=== PATIENT | female | born 1935 | race Caucasian/White ===

== ENCOUNTER 2016-07-15 14:43 | Observation (INO) | payer OTHER ==
[2016-07-15] VITALS (7 sets, daily range): BP systolic 107–175; BP diastolic 55–88; PULSE 66–92; RESP 16–18; TEMP 99.7–102.3; O2SAT 90–97
[~2016-07-15] VITALS: Ht 162.6 cm; Wt 75.0 kg
[~2016-07-15 14:43] MED LIST: AMLO2.5T PO; ASPI81CH37 CHEW; CHOL100025 CHEW; MAGN400T2 PO; MECL-62 PO; METO25TA3 PO; SIMV40TA PO
--- NOTE | 2016-07-15 15:25 | PD ---
HPI Chief Complaint: Dizziness Time Seen by Provider: 15:06 Travel History International Travel<30 days: No Contact w/Intl Traveler<30days: No Traveled to known affect area: No History of Present Illness HPI 81yo F with PMH of vertigo, HTN, HLD presents to the ED with c/o sensation of spinning for 3 days. States when she opens her eyes, she feels like she is spinning. Had an episode of vomiting some phlegm on her way to the ED. Pt had this before and was here for vertigo in 2014. Pt ran out of meclizine. Pt also with cough for a few days and fever yesterday. Denies any chest pain, sob , abdominal pain, focal weakness or numbness. PFSH Past Medical History Hx Anticoagulant Therapy: No Arthritis: No Asthma: No Autoimmune Disease: No Anxiety: No Depression: No Heart Rhythm Problems: No Cancer: Yes (RIGHT MASTECTOMY) Cardiovascular Problems: Yes (HTN) High Cholesterol: Yes Chemotherapy: No Chest Pain: No Congestive Heart Failure: No COPD: No Cerebrovascular Accident: No Diabetes: No Diminished Hearing: No Endocrine: No Gastrointestinal Disorders: No GERD: No Genitourinary: No Hiatal Hernia: No Heparin Induced Thrombocytopen: No Hypertension: Yes Immune Disorder: No Implanted Vascular Access Dvce: No Kidney Stones: No Musculoskeletal: No Neurologic: No Psychiatric: No Reproductive: No Respiratory: No Immunizations Current: Yes Radiation Therapy: Yes (RIGHT CHEST) Renal Failure: No Sickle Cell Disease: No Sleep Apnea: No Thyroid Disease: No Ulcer: No ?: Not Past Surgical History Abdominal Surgery: No AICD: No Arteriovenous Shunt: No Cardiac Surgery: No Ear Surgery: No Endocrine Surgery: No Eye Surgery: No Genitourinary Surgery: No Gynecologic Surgery: No Insulin Pump: No Joint Replacement: No Neurologic Surgery: No Oral Surgery: No Thoracic Surgery: No Other Surgery: Yes (RIGHT PARTIAL MASTECTOMY W/ PARTIAL LYMPH NODE DISSECTION) Social History Alcohol Use: No Tobacco Use: No Substance Use: No Allergies-Medications (Allergen,Severity, Reaction): Coded Allergies: Vasotec (Verified Allergy, Severe, ANGOIEDEMA, 07/15/16) Reported Meds & Prescriptions Reported Meds & Active Scripts Active Reported Metoprolol Tartrate 25 Mg Tab 25 Mg PO DAILY Aspirin Low Dose (Aspirin) 81 Mg Chew 81 Mg CHEW DAILY Simvastatin 40 Mg Tab 40 Mg PO HS Amlodipine (Amlodipine Besylate) 2.5 Mg Tab 2.5 Mg PO DAILY Review of Systems Except as stated in HPI: all other systems reviewed are Neg Physical Exam Narrative GEN: 81yo F in mild distress. SKIN: Warm and dry. HEAD: Normocephalic, atraumatic. EYES: Pupils reactive and equal at 3mm bilaterally. NECK: Trachea midline, No JVD. ENT: Ears: TM wnl bilaterally. CV: S1, S2. Lungs: CTA B/L, equal breath sounds. ABD: soft, NT/ND. NEURO: No focal neurologic deficits. Normal speech. Muscle strength and sensation intact in all extremities. Data Data Last Documented VS Vital Signs Date Time Temp Pulse Resp B/P Pulse Ox O2 Delivery O2 Flow Rate FiO2 07/15/16 17:02 92 18 169/78 97 Room Air 07/15/16 14:53 99.7 Orders Electrocardiogram (07/15/16 ) Complete Blood Count With Diff (07/15/16 15:18) Basic Metabolic Panel (Bmp) (07/15/16 15:18) Chest, Single Ap (07/15/16 ) Meclizine (Antivert) (07/15/16 15:30) Urinalysis - C+S If Indicated (07/15/16 15:25) Sodium Chlorid 0.9% 500 Ml Inj (Ns 500 M (07/15/16 16:00) Prochlorperazine Inj (Compazine Inj) (07/15/16 17:00) Place In Observation (07/15/16 ) Vital Signs (Adult) Q4H (07/15/16 17:00) Activity Oob With Assistance (07/15/16 17:00) Diet Heart Healthy (07/15/16 Dinner) Sodium Chlor 0.9% 1000 Ml Inj (Ns 1000 M (07/15/16 17:00) Sodium Chloride 0.9% Flush (Ns Flush) (07/15/16 17:00) Admit Order (Ed Use Only) (07/15/16 17:00) Sodium Chloride 0.9% Flush (Ns Flush) (07/15/16 21:00) Acetaminophen (Tylenol) (07/15/16 17:00) Ondansetron Inj (Zofran Inj) (07/15/16 17:00) Magnesium Hydroxide Liq (Milk Of Magnesi (07/15/16 17:00) Basic Metabolic Panel (Bmp) (07/16/16 06:00) Comprehensive Metabolic Panel (07/16/16 06:00) Pt Request For Service (07/15/16 17:00) Scd Bilateral/Knee High HALINA.BID (07/15/16 17:00) Naloxone Inj (Narcan Inj) (07/15/16 17:00) Labs Laboratory Tests Test 07/15/16 07/15/16 15:18 15:48 White Blood Count 4.2 TH/MM3 Red Blood Count 5.21 MIL/MM3 Hemoglobin 15.5 GM/DL Hematocrit 47.1 % Mean Corpuscular Volume 90.5 FL Mean Corpuscular Hemoglobin 29.7 PG Mean Corpuscular Hemoglobin 32.8 % Concent Red Cell Distribution Width 12.7 % Platelet Count 128 TH/MM3 Mean Platelet Volume 8.1 FL Neutrophils (%) (Auto) 71.8 % Lymphocytes (%) (Auto) 11.9 % Monocytes (%) (Auto) 14.9 % Eosinophils (%) (Auto) 0.7 % Basophils (%) (Auto) 0.7 % Neutrophils # (Auto) 3.1 TH/MM3 Lymphocytes # (Auto) 0.5 TH/MM3 Monocytes # (Auto) 0.6 TH/MM3 Eosinophils # (Auto) 0.0 TH/MM3 Basophils # (Auto) 0.0 TH/MM3 CBC Comment DIFF FINAL Differential Comment Sodium Level 137 MEQ/L Potassium Level 3.9 MEQ/L Chloride Level 101 MEQ/L Carbon Dioxide Level 28.0 MEQ/L Anion Gap 8 MEQ/L Blood Urea Nitrogen 14 MG/DL Creatinine 0.96 MG/DL Estimat Glomerular Filtration 56 ML/MIN Rate Random Glucose 110 MG/DL Calcium Level 8.9 MG/DL Urine Collection Type CLEAN CATCH Urine Color YELLOW Urine Turbidity CLEAR Urine pH 6.0 Urine Specific [place] 1.021 Urine Protein TRACE mg/dL Urine Glucose (UA) NEG mg/dL Urine Ketones TRACE mg/dL Urine Occult Blood LARGE Urine Nitrite NEG Urine Bilirubin NEG Urine Leukocyte Esterase NEG Urine RBC 15-19 /hpf Urine WBC 0-2 /hpf Urine Squamous Epithelial 0-5 /hpf Cells Urine Yeast (Budding) FEW Microscopic Urinalysis Comment CULT NOT INDICATED Urine Collection Time 15:48 [facility] Medical Decision Making Medical Screen Exam Complete: Yes Emergency Medical Condition: Yes Interpretation(s) EKG: NSR 75bpm. LAD. No ST segment elevation or depression. Differential Diagnosis Peripheral vertigo vs. arrhythmia vs. electrolyte abnormality Narrative Course 81yo F presents with symptoms consistent with vertigo. Pt had work up in [address] brain and MRI brain. Pt given meclizine and NS IVF with little relieve. Pt still feels spinning and is unable to walk. She lives by herself and needs to be admitted since she is unable to ambulate due to dizziness. Will try some compazine. Labs reviewed, hemoconcentrated with elevated H/H. Pt given NS 500cc IVF. BMP unremarkable. UA showed blood but no leukocyte or nitrite. Discussed with Dr. Callaway and accepted to his service. Diagnosis Primary Impression: Vertigo Admitting Information Admitting Physician Requests: Debora Chase DO Jul 15, 2016 15:24
[2016-07-15] MEDS ORDERED: MECLIZINE HCL 25 MG TAB PO ONE (15:30)
[2016-07-15 15:37] LABS: AUTOMATED NEUTROPHIL # 3.1 TH/MM3 (1.8-7.7); BASOPHIL % 0.7 % (0.0-2.0); EOSINOPHIL % 0.7 % (0.0-4.0); HEMATOCRIT 47.1 % (35.0-46.0); HEMO FLAGS DIFF FINAL; LYMPH % 11.9 % (9.0-44.0); LYMPHOCYTE # 0.5 TH/MM3 (1.0-4.8); MEAN CELL VOLUME 90.5 FL (80.0-100.0); MEAN CORPUSCULAR HEMOGLOBIN 29.7 PG (27.0-34.0); MEAN CORPUSCULAR HGB CONC 32.8 % (32.0-36.0); MONO % 14.9 % (0.0-8.0); NEUT % 71.8 % (16.0-70.0); PLATELET COUNT 128 TH/MM3 (150-450); RED BLOOD COUNT 5.21 MIL/MM3 (4.00-5.30); RED CELL DISTRIBUTION WIDTH 12.7 % (11.6-17.2); WHITE BLOOD COUNT 4.2 TH/MM3 (4.0-11.0)
[2016-07-15 15:45] LABS: POTASSIUM 3.9 MEQ/L (3.5-5.1)
[2016-07-15 15:55] LABS: BLOOD, URINE LARGE (NEG); GLUCOSE,URINE NEG (NEG); KETONE, URINE TRACE mg/dL (NEG); NITRITE,URINE NEG (NEG)
--- NOTE | 2016-07-15 15:59 | RADHPO ---
EXAM DATE/TIME: 07/15/2016 15:18 [place] COMPARISON: CHEST SINGLE AP, May 05, 2014, 9:39. INDICATIONS : Cough. MEDICAL HISTORY : None. SURGICAL HISTORY : None. ENCOUNTER: Initial ACUITY: 3 days PAIN SCORE: 0/10 LOCATION: Bilateral chest FINDINGS: A single view of the chest demonstrates the lungs to be symmetrically aerated with minimal atelectati c changes of the left hemidiaphragm. There appears to be interval development of benign parenchymal c alcifications either in the parenchyma of the right lung base or the overlying breast tissue. Breast shadows are asymmetric suggesting a partial right mastectomy with axillary pearl dissection. Heart si ze is normal. Degenerative spurring of the dorsal spine. Osseous structures are otherwise intact. CONCLUSION: 1. No acute infiltrate. 2. Minimal atelectatic changes of the left hemidiaphragm with benign appearing calcification projecti ng over the right hemidiaphragm. This may be within the overlying breast tissue or right lung base. 3. Stable postsurgical changes with probable right axillary pearl dissection and partial right mastec zuleika. Patient has asymmetric breast shadows. Jax Amezcua MD on July 15, 2016 at 15:54 Board Certified Radiologist. This report was verified electronically.
[2016-07-15] MEDS ORDERED: SODIUM CHLORID 0.9% 500 ML INJ 500 ML IV ONE (16:00)
[2016-07-15 16:02] LABS: METHOD OF COLLECTION CLEAN CATCH; URINE COLOR YELLOW (YELLW/STRAW); WBC, URINE 0-2 /hpf (0-5)
[2016-07-15 16:03] LABS: COMMENT (UR) CULT NOT INDICATED; CULTURE IF INDICATED CULT NOT INDICATED; RBC, URINE 15-19 /hpf (0-3); SQUAMOUS EPITHELIAL CELL URINE 0-5 /hpf (0-5)
[2016-07-15] MEDS ORDERED: ONDANSETRON HCL 4 MG/2 ML VIAL IVP PRN (17:00)
[2016-07-15] MEDS ORDERED: SODIUM CHLORIDE 0.9% FLUSH 10 ML FLUSH IV FLUSH PRN (17:00)
[2016-07-15] MEDS ORDERED: MAGNESIUM HYDROXIDE SUSP 30 ML CUP PO PRN (17:00)
[2016-07-15] MEDS ORDERED: NALOXONE HCL 0.4 MG/ML AMP IV PRN (17:00)
[2016-07-15] MEDS ORDERED: PROCHLORPERAZINE INJ 10 MG/2 ML VIAL IV PUSH ONE (17:00)
[2016-07-15] MEDS ORDERED: ACETAMINOPHEN 325 MG TAB PO PRN (17:00)
--- NOTE | 2016-07-15 17:03 | HHI.HP ---
[facility] Armando Anthony MD Admission Diagnosis Vertigo, unable to ambulate Diagnoses: Chief Complaint: Vertigo. Travel History International Travel<30 Days: No Contact w/Intl Traveler <30 Da: No Traveled to Known Affected Are: No History of Present Illness Ms. Zamora is a pleasant 81 year old female with a remote history of vertigo, hypertension, hyperlipidemia who presented to the ED on 07/15/2016 due to spinning sensation that started about three days ago. Patient has not taken Meclizine for about 3 years. She lives by herself and lives an independent life. In the last three days, she reports spinning sensation when she opens her eyes. She reports no cough, fever, chills, chest pain or shortness of breath. Denies any changes in bowel or bladder habits. Review of Systems Except as stated in HPI: all other systems reviewed are Neg Past Family Social History Past Medical History Right breast lump HTN, HLD, Vertigo. Past Surgical History Right sided lumpectomy in 1993. Reported Medications Metoprolol Tartrate 25 Mg Tab 25 Mg PO DAILY Aspirin Low Dose (Aspirin) 81 Mg Chew 81 Mg CHEW DAILY Simvastatin 40 Mg Tab 40 Mg PO HS Amlodipine (Amlodipine Besylate) 2.5 Mg Tab 2.5 Mg PO DAILY Allergies: Coded Allergies: Vasotec (Verified Allergy, Severe, ANGOIEDEMA, 07/15/16) Family History No family history of Alzheimer's or Parkinson's. Social History Denies using tobacco, alcohol. Physical Exam Vital Signs Vital Signs Date Time Temp Pulse Resp B/P Pulse Ox O2 Delivery O2 Flow Rate FiO2 07/15/16 16:01 77 18 175/80 97 Room Air 07/15/16 15:10 76 96 Room Air 07/15/16 14:53 99.7 80 16 151/88 94 Physical Exam GENERAL: This is a well-nourished, well-developed patient, in no apparent distress. Eyes closed during this interview. SKIN: No rashes, ecchymoses or lesions. Warm and dry. HEAD: Atraumatic. Normocephalic. No temporal or scalp tenderness. EYES: Pupils equal round and reactive. No injection or drainage. ENT: Nose without bleeding, purulent drainage or septal hematoma. Airway patent. NECK: Trachea midline. No lymphadenopathy. Supple, nontender, no meningeal signs. CARDIOVASCULAR: Regular rate and rhythm without murmurs, gallops, or rubs. No JVD. RESPIRATORY: Clear to auscultation. Breath sounds equal bilaterally. No wheezes , rales, or rhonchi. GASTROINTESTINAL: Abdomen soft, non-tender, nondistended. No guarding. MUSCULOSKELETAL: Extremities without clubbing, cyanosis, or edema. NEUROLOGICAL: Awake and alert. Cranial nerves II through XII intact. No focal neurological deficits. Normal speech. Laboratory Laboratory Tests Test 07/15/16 07/15/16 15:18 15:48 White Blood Count 4.2 Red Blood Count 5.21 Hemoglobin 15.5 Hematocrit 47.1 Mean Corpuscular Volume 90.5 Mean Corpuscular Hemoglobin 29.7 Mean Corpuscular Hemoglobin 32.8 Concent Red Cell Distribution Width 12.7 Platelet Count 128 Mean Platelet Volume 8.1 Neutrophils (%) (Auto) 71.8 Lymphocytes (%) (Auto) 11.9 Monocytes (%) (Auto) 14.9 Eosinophils (%) (Auto) 0.7 Basophils (%) (Auto) 0.7 Neutrophils # (Auto) 3.1 Lymphocytes # (Auto) 0.5 Monocytes # (Auto) 0.6 Eosinophils # (Auto) 0.0 Basophils # (Auto) 0.0 CBC Comment DIFF FINAL Differential Comment Sodium Level 137 Potassium Level 3.9 Chloride Level 101 Carbon Dioxide Level 28.0 Anion Gap 8 Blood Urea Nitrogen 14 Creatinine 0.96 Estimat Glomerular Filtration 56 Rate Random Glucose 110 Calcium Level 8.9 Urine Collection Type CLEAN CATCH Urine Color YELLOW Urine Turbidity CLEAR Urine pH 6.0 Urine Specific [place] 1.021 Urine Protein TRACE Urine Glucose (UA) NEG Urine Ketones TRACE Urine Occult Blood LARGE Urine Nitrite NEG Urine Bilirubin NEG Urine Leukocyte Esterase NEG Urine RBC 15-19 Urine WBC 0-2 Urine Squamous Epithelial 0-5 Cells Urine Yeast (Budding) FEW Microscopic Urinalysis Comment CULT NOT INDICATED Urine Collection Time 15:48 Result Diagram: 07/15/16 1518 07/15/16 1518 Imaging Last Impressions Chest X-Ray 07/15/16 0000 Signed Impressions: Service Date/Time: Friday, July 15, 2016 15:18 - CONCLUSION: 1. No acute infiltrate. 2. Minimal atelectatic changes of the left hemidiaphragm with benign appearing calcification projecting over the right hemidiaphragm. This may be within the overlying breast tissue or right lung base. 3. Stable postsurgical changes with probable right axillary pearl dissection and partial right mastectomy. Patient has asymmetric breast shadows. Jax Amezcua MD Assessment and Plan Problem List: (1) Vertigo ICD Code: R42 Status: Acute (2) HTN (hypertension) ICD Code: I10 Status: Acute Assessment and Plan Ms. Zamora is an 81 year old female with a remote history of Vertigo who presents to the ED with vertigo symptoms that started 3 days ago. Patient did not have any fever, chills, cough, shortness of breath. Upon admission, however, in the evening, patient developed fever. Discussed with RN on 2016 evening. Patient's fever was around 100.9. 102.3F was recorded once. However, an immediate repeat temp check was 100.9F. - Vertigo - Will start patient on Meclizine 25mg TID. - PT eval. - Low grade fever - etiology not clear. - CXR reviewed by me, does not show any evidence of infiltrates. Blood cx pending. UA unremarkable. - Bacterial Labyrinthitis is a possibility or pneumonia - Will empirically start patient on Levaquin IV. If patient continues to have persistent fever, will consider Ceftriaxone. - Hypertension - Continue Amlodipine. Patient takes 2.5mg Qday. Will continue 5mg Qday. - Hyperlipidemia - continue Statin. Full code. EUNs. Desiree Callaway DO Jul 15, 2016 17:02
[2016-07-15] MEDS: SODIUM CHLOR 0.9% 1000 ML INJ 1,000 ML IV SCH (17:09)
[2016-07-15] MEDS ORDERED: amLODIPine BESYLATE 5 MG TAB PO ONE (17:45)
[2016-07-15] MEDS ORDERED: PRAVASTATIN SOD 80 MG TAB PO SCH (21:00)
[2016-07-15] MEDS: SODIUM CHLORIDE 0.9% FLUSH 10 ML FLUSH IV FLUSH SCH (22:10)
[2016-07-15] MEDS: MECLIZINE HCL 25 MG TAB PO SCH (22:10)
[2016-07-15] MEDS ORDERED: LEVOFLOXACIN 750 MG PREMIX INJ 150 ML IV ONE (22:15)
[2016-07-16 00:52] VITALS: BP 103/57; PULSE 68; RESP 18; TEMP 99.7; O2SAT 91
[2016-07-16] MEDS: SODIUM CHLOR 0.9% 1000 ML INJ 1,000 ML IV SCH ×2 (05:05→13:30)
[2016-07-16 05:06] VITALS: O2SAT 96
[2016-07-16] MEDS: MECLIZINE HCL 25 MG TAB PO SCH ×2 (05:12→13:30)
[2016-07-16 07:34] LABS: CHLORIDE 105 MEQ/L (98-107); POTASSIUM 3.9 MEQ/L (3.5-5.1); SODIUM (NA) 139 MEQ/L (136-145)
[2016-07-16 07:50] LABS: ALKALINE PHOSPHATASE 51 U/L (45-117); ALT (GPT) 34 U/L (10-53); ANION GAP 6 MEQ/L (5-15); AST (GOT) 37 U/L (15-37); BICARBONATE 27.6 MEQ/L (21.0-32.0); BLOOD UREA NITROGEN 11 MG/DL (7-18); GLOMERULAR FILTRATION RATE 62 ML/MIN (>89); TOTAL BILIRUBIN ADULT 0.4 MG/DL (0.2-1.0)
[2016-07-16 08:00] VITALS: BP 127/71; PULSE 63; RESP 24; TEMP 98.9; O2SAT 92
[2016-07-16] MEDS: SODIUM CHLORIDE 0.9% FLUSH 10 ML FLUSH IV FLUSH SCH (08:48)
[2016-07-16] MEDS ORDERED: amLODIPine BESYLATE 5 MG TAB PO SCH (09:00)
[2016-07-16] MEDS ORDERED: ASPIRIN 81 MG CHEW TAB CHEW SCH (09:00)
[2016-07-16 12:00] VITALS: BP 116/66; PULSE 66; RESP 24; TEMP 98.8; O2SAT 98
--- NOTE | 2016-07-16 13:47 | EKG ---
Date Performed: 07/15/2016 Time Performed: 15:26:00 PTAGE: 81 years EKG: Sinus rhythm Leftward axis Inferior infarct - age undetermined Loss of R waves, V3, V4, and V5 compared to previo us tracing. Cannot rule out any current injury. Clinical correlation is recommended Abnormal ECG PREVIOUS TRACING : 05/05/2014 08.54 DOCTOR: Keegan Pena Interpretating Date/Time 07/16/2016 13:44:36
[2016-07-16 16:00] VITALS: BP 137/69; PULSE 68; RESP 24; TEMP 98.2; O2SAT 94
[2016-07-16] MEDS ORDERED: LEVA750T PO (16:12)
[2016-07-16] MEDS ORDERED: MECL-62 PO (16:12)
--- NOTE | 2016-07-16 16:16 | HHI.PR ---
Subjective Remarks Follow-up for dizziness. Patient is feeling much better today. Denies any spinning sensation. Reports to go home. Objective Vitals Vital Signs Date Time Temp Pulse Resp B/P Pulse Ox O2 Delivery O2 Flow Rate FiO2 07/16/16 12:00 98.8 66 24 116/66 98 07/16/16 08:00 98.9 63 24 127/71 92 07/16/16 05:06 96 07/16/16 00:52 99.7 68 18 103/57 91 07/15/16 21:37 102.3 72 16 118/61 90 07/15/16 20:22 100.9 66 18 143/71 92 07/15/16 18:49 60 18 107/55 98 07/15/16 17:50 82 18 162/78 95 Room Air 07/15/16 17:02 92 18 169/78 97 Room Air I/O 07/15/16 07/15/16 07/15/16 07/16/16 07/16/16 07/16/16 07:00 15:00 23:00 07:00 15:00 23:00 Intake Total 500 ml 1200 ml 660 ml Output Total 4 ml Balance 500 ml 1200 ml 656 ml Intake Oral 660 ml IV Total 500 ml 1200 ml Output Urine Total 4 ml # Voids 1 Result Diagram: 07/15/16 1518 07/16/16 0712 Imaging Last Impressions Chest X-Ray 07/15/16 0000 Signed Impressions: Service Date/Time: Friday, July 15, 2016 15:18 - CONCLUSION: 1. No acute infiltrate. 2. Minimal atelectatic changes of the left hemidiaphragm with benign appearing calcification projecting over the right hemidiaphragm. This may be within the overlying breast tissue or right lung base. 3. Stable postsurgical changes with probable right axillary pearl dissection and partial right mastectomy. Patient has asymmetric breast shadows. Jax Amezcua MD Objective Remarks GENERAL: AOX3, NAD. SKIN: Warm and dry. HEAD: Normocephalic. EYES: No scleral icterus. No injection or drainage. NECK: Supple, trachea midline. No JVD or lymphadenopathy. CARDIOVASCULAR: Regular rate and rhythm without murmurs, gallops, or rubs. RESPIRATORY: Breath sounds equal bilaterally. No accessory muscle use. GASTROINTESTINAL: Abdomen soft, non-tender, nondistended. MUSCULOSKELETAL: No cyanosis, or edema. BACK: Nontender without obvious deformity. No CVA tenderness. Procedures None. A/P Problem List: (1) Vertigo ICD Code: R42 Status: Acute (2) HTN (hypertension) ICD Code: I10 Status: Acute Assessment and Plan Ms. Zamora is an 81 year old female with a remote history of Vertigo who presents to the ED with vertigo symptoms that started 3 days ago. Patient did not have any fever, chills, cough, shortness of breath. Upon admission, however, in the evening, patient developed fever. Discussed with RN on 2016 evening. Patient's fever was around 100.9. 102.3F was recorded once. However, an immediate repeat temp check was 100.9F. - Vertigo - Continue Meclizine 25mg TID. - Low grade fever - etiology not clear. - CXR reviewed by me, does not show any evidence of infiltrates. Blood cx pending. UA unremarkable. - Bacterial Labyrinthitis is a possibility or pneumonia - Continue Levaquin for 7 more days. - Hypertension - Continue Amlodipine 2.5mg Qday. Discontinue Metoprolol - patient's heart rate has been in the 60s. - Hyperlipidemia - continue Statin. Full code. SCDs. Discharge patient to home Condition on discharge: Improved Heart healthy Diet as tolerated Ad Carlita activity Rx written: - Meclizine 25 mg by mouth 3 times a day - Levaquin 750 mg by mouth daily for 7 days. Follow-up with primary care physician within one week and ENT within 2 weeks. Desiree Callaway DO Jul 16, 2016 4:16 pm
[2016-07-17] MEDS ORDERED: LEVOFLOXACIN 750 MG/DEXTROSE 150 ML IV SCH (22:00)
== END 2016-07-16 17:35 | disposition home or self-care (01) ==
LOC: PHED 14:43 → PHEDA 17:02 → PH3A 18:47
PROVIDERS: ADMIT Hospitalist; ATTEND Hospitalist
DX: R42 Dizziness and giddiness (principal); I10 Essential (primary) hypertension; R50.9 Fever, unspecified; E78.5 Hyperlipidemia, unspecified; E78.00 Pure hypercholesterolemia, unspecified; R94.31 Abnormal electrocardiogram [ECG] [EKG]
CPT/HCPCS: 71010; 80048; 80053; 81001; 85025; 87040; 93005; 94150; 96360; 97161; 99285; G0378; G8987; G8988; J0780; J1956; J7030; J7040

== ENCOUNTER 2017-05-10 12:24 | Emergency (ER) | payer OTHER ==
[~2017-05-10] VITALS: Ht 162.6 cm; Wt 76.5 kg
[~2017-05-10 12:24] MED LIST changes: -ASPI81CH37 CHEW; +ASPI81CH6 CHEW; -CHOL100025 CHEW; +LEVA750T PO; -MAGN400T2 PO; -METO25TA3 PO
[2017-05-10 12:33] VITALS: BP 205/92; PULSE 73; RESP 16; TEMP 97.7; O2SAT 99
[2017-05-10] MEDS ORDERED: SODIUM CHLORIDE 0.9% FLUSH 10 ML FLUSH IVF PRN (12:45)
[2017-05-10] MEDS ORDERED: HTN MED (12:49)
[2017-05-10] MEDS ORDERED: LOVA10TA PO (12:49)
[2017-05-10 12:53] VITALS: BP 194/97; PULSE 70; RESP 18; O2SAT 99
--- NOTE | 2017-05-10 12:55 | PD ---
HPI Chief Complaint: Hypertension Time Seen by Provider: 12:36 Travel History International Travel<30 days: No Contact w/Intl Traveler<30days: No Traveled to known affect area: No History of Present Illness HPI This is an 81-year-old female with a history of hypertension who presents for elevated blood pressure. She states that over the last week, her blood pressure has been higher than usual. At home, it has been between 170-190 systolic. She denies associated chest pain, shortness of breath, headache, unilateral weakness, numbness, tingling. She has been otherwise well recently without fever, chills, cough, congestion, vomiting, diarrhea. She states that her diet consists mostly of hotdogs, frozen food, soups. She states that yesterday, she had some swelling in her ankles that is improved today. She states that she has been compliant with her medications. She usually takes 2.5 mg of amlodipine and had doubled it. She called her primary physician's office this morning and was told she can triple it. Symptoms are mild in severity. Onset gradual. No known alleviating or aggravating factors. PFSH Past Medical History Hx Anticoagulant Therapy: No Arthritis: No Asthma: No Autoimmune Disease: No Anxiety: No Depression: No Heart Rhythm Problems: No Cancer: Yes (RIGHT MASTECTOMY) Cardiovascular Problems: Yes (htn on meds) High Cholesterol: Yes Chemotherapy: No Chest Pain: No Congestive Heart Failure: No COPD: No Cerebrovascular Accident: No Diabetes: No Diminished Hearing: No Endocrine: No Gastrointestinal Disorders: No GERD: No Genitourinary: No Hiatal Hernia: No Heparin Induced Thrombocytopen: No Hypertension: Yes Immune Disorder: No Implanted Vascular Access Dvce: No Kidney Stones: No Musculoskeletal: No Neurologic: No Psychiatric: No Reproductive: No Respiratory: No Immunizations Current: Yes Migraines: No Radiation Therapy: Yes (RIGHT CHEST) Renal Failure: No Seizures: No Sickle Cell Disease: No Sleep Apnea: No Thyroid Disease: No Ulcer: No ?: Not Menopausal: Yes Past Surgical History Abdominal Surgery: No AICD: No Arteriovenous Shunt: No Cardiac Surgery: No Ear Surgery: No Endocrine Surgery: No Eye Surgery: No Genitourinary Surgery: No Gynecologic Surgery: No Insulin Pump: No Joint Replacement: No Neurologic Surgery: No Oral Surgery: No Thoracic Surgery: No Other Surgery: Yes (RIGHT PARTIAL MASTECTOMY W/ PARTIAL LYMPH NODE DISSECTION) Social History Alcohol Use: No Tobacco Use: No Substance Use: No Allergies-Medications (Allergen,Severity, Reaction): Coded Allergies: enalaprilat (Unverified Allergy, Severe, ANGOIEDEMA, 05/10/17) Reported Meds & Prescriptions Reported Meds & Active Scripts Active Reported Atorvastatin (Atorvastatin Calcium) 20 Mg Tab 20 Mg PO HS Amlodipine (Amlodipine Besylate) 2.5 Mg Tab 2.5 Mg PO DAILY Review of Systems Except as stated in HPI: all other systems reviewed are Neg Physical Exam Narrative GENERAL: Alert, well nourished, well appearing patient resting on the bed in no acute distress. Vital Signs reviewed SKIN: Focused skin assessment warm/dry. HEAD: Atraumatic. Normocephalic. EYES: Pupils equal and round. No scleral icterus. No injection or drainage. ENT: No nasal bleeding or discharge. Mucous membranes pink and moist. NECK: Trachea midline. No JVD. Spontaneous, painless full range of motion with no meningismus CARDIOVASCULAR: Regular rate and rhythm. No murmur appreciated. Extremities warm and well perfused with bounding peripheral pulses RESPIRATORY: No accessory muscle use. Clear to auscultation. Breath sounds equal bilaterally. Breathing easily and speaking in full sentences GASTROINTESTINAL: Abdomen soft, non-tender, nondistended. Normal bowel sounds. No rigid, rebound, guarding MUSCULOSKELETAL: No obvious deformities. No clubbing. No cyanosis. No edema. Compartments are soft NEUROLOGICAL: Awake and alert. No obvious cranial nerve deficits. Motor grossly within normal limits. Normal speech. Sensation intact. Normal gait. No pronator drift. Data Data Last Documented VS Vital Signs Date Time Temp Pulse Resp B/P (MAP) Pulse Ox O2 Delivery O2 Flow Rate FiO2 05/10/17 14:45 16 145/75 (98) 97 Room Air 05/10/17 12:53 70 05/10/17 12:33 97.7 Orders Orders Electrocardiogram (05/10/17 12:45) Complete Blood Count With Diff (05/10/17 12:45) Comprehensive Metabolic Panel (05/10/17 12:45) Magnesium (Mg) (05/10/17 12:45) B-Type Natriuretic Peptide (05/10/17 12:45) Ckmb (Isoenzyme) Profile (05/10/17 12:45) Troponin I (05/10/17 12:45) Act Partial Throm Time (Ptt) (05/10/17 12:45) Prothrombin Time / Inr (Pt) (05/10/17 12:45) Chest, Pa & Lat (05/10/17 12:45) Ct Brain W/O Iv Contrast(Rout) (05/10/17 12:45) Ecg Monitoring (05/10/17 12:45) Iv Access Insert/Monitor (05/10/17 12:45) Oximetry (05/10/17 12:45) Sodium Chloride 0.9% Flush (Ns Flush) (05/10/17 12:45) Potassium Chloride (Kcl) (05/10/17 14:00) Hydralazine Inj (Apresoline Inj) (05/10/17 14:00) Labs Laboratory Tests Test 05/10/17 13:00 White Blood Count 5.5 TH/MM3 Red Blood Count 4.54 MIL/MM3 Hemoglobin 13.4 GM/DL Hematocrit 40.3 % Mean Corpuscular Volume 88.7 FL Mean Corpuscular Hemoglobin 29.5 PG Mean Corpuscular Hemoglobin Concent 33.3 % Red Cell Distribution Width 12.5 % Platelet Count 187 TH/MM3 Mean Platelet Volume 8.2 FL Neutrophils (%) (Auto) 56.6 % Lymphocytes (%) (Auto) 28.9 % Monocytes (%) (Auto) 9.3 % Eosinophils (%) (Auto) 3.9 % Basophils (%) (Auto) 1.3 % Neutrophils # (Auto) 3.1 TH/MM3 Lymphocytes # (Auto) 1.6 TH/MM3 Monocytes # (Auto) 0.5 TH/MM3 Eosinophils # (Auto) 0.2 TH/MM3 Basophils # (Auto) 0.1 TH/MM3 CBC Comment DIFF FINAL Differential Comment Prothrombin Time 11.0 SEC Prothromb Time International Ratio 1.1 RATIO Activated Partial Thromboplast Time 25.9 SEC Blood Urea Nitrogen 10 MG/DL Creatinine 0.64 MG/DL Random Glucose 97 MG/DL Total Protein 7.9 GM/DL Albumin 3.6 GM/DL Calcium Level 8.8 MG/DL Magnesium Level 2.2 MG/DL Alkaline Phosphatase 84 U/L Aspartate Amino Transf (AST/SGOT) 20 U/L Alanine Aminotransferase (ALT/SGPT) 24 U/L Total Bilirubin 0.4 MG/DL Sodium Level 137 MEQ/L Potassium Level 3.4 MEQ/L Chloride Level 103 MEQ/L Carbon Dioxide Level 26.8 MEQ/L Anion Gap 7 MEQ/L Estimat Glomerular Filtration Rate 89 ML/MIN Total Creatine Kinase 60 U/L Troponin I LESS THAN 0.02 NG/ML B-Type Natriuretic Peptide 34 PG/ML MDM Medical Decision Making Medical Screen Exam Complete: Yes Emergency Medical Condition: Yes Medical Record Reviewed: Yes Interpretation(s) EKG shows sinus rhythm with a rate of 64. No acute ST elevation Last [address] 05/10/171244 Signed Impressions: Service Date/Time: Wednesday, May 10, 2017 13:33 - CONCLUSION: Negative for an acute process Petey Ruvalcaba MD FACR Chest X-Ray 05/10/171244 Signed Impressions: Service Date/Time: Wednesday, May 10, 2017 13:23 - CONCLUSION: 1. No acute cardiopulmonary disease. Yusuf Zafar MD Laboratory Tests Test 05/10/17 13:00 White Blood Count 5.5 TH/MM3 Red Blood Count 4.54 MIL/MM3 Hemoglobin 13.4 GM/DL Hematocrit 40.3 % Mean Corpuscular Volume 88.7 FL Mean Corpuscular Hemoglobin 29.5 PG Mean Corpuscular Hemoglobin Concent 33.3 % Red Cell Distribution Width 12.5 % Platelet Count 187 TH/MM3 Mean Platelet Volume 8.2 FL Neutrophils (%) (Auto) 56.6 % Lymphocytes (%) (Auto) 28.9 % Monocytes (%) (Auto) 9.3 % Eosinophils (%) (Auto) 3.9 % Basophils (%) (Auto) 1.3 % Neutrophils # (Auto) 3.1 TH/MM3 Lymphocytes # (Auto) 1.6 TH/MM3 Monocytes # (Auto) 0.5 TH/MM3 Eosinophils # (Auto) 0.2 TH/MM3 Basophils # (Auto) 0.1 TH/MM3 CBC Comment DIFF FINAL Differential Comment Prothrombin Time 11.0 SEC Prothromb Time International Ratio 1.1 RATIO Activated Partial Thromboplast Time 25.9 SEC Blood Urea Nitrogen 10 MG/DL Creatinine 0.64 MG/DL Random Glucose 97 MG/DL Total Protein 7.9 GM/DL Albumin 3.6 GM/DL Calcium Level 8.8 MG/DL Magnesium Level 2.2 MG/DL Alkaline Phosphatase 84 U/L Aspartate Amino Transf (AST/SGOT) 20 U/L Alanine Aminotransferase (ALT/SGPT) 24 U/L Total Bilirubin 0.4 MG/DL Sodium Level 137 MEQ/L Potassium Level 3.4 MEQ/L Chloride Level 103 MEQ/L Carbon Dioxide Level 26.8 MEQ/L Anion Gap 7 MEQ/L Estimat Glomerular Filtration Rate 89 ML/MIN Total Creatine Kinase 60 U/L Troponin I LESS THAN 0.02 NG/ML B-Type Natriuretic Peptide 34 PG/ML Differential Diagnosis Accelerated hypertension, end organ dysfunction, fluid overload Narrative Course Patient was placed on the cardiac exercise physiologist. IV access was established. EKG, labs, imaging were performed. She was given potassium supplementation and a dose of hydralazine with improvement in her blood pressure. I reviewed the results of the workup with her. Plan for discharge with supportive care and very close outpatient follow-up with her primary physician within the next 2 days. She will increase her amlodipine as discussed with her primary this morning. Patient understands the importance of close outpatient follow-up. She understands she may require further testing and treatment as an outpatient. She understands strict return indications. She is comfortable with this plan and eager to go home. Diagnosis Primary Impression: Accelerated hypertension Referrals: Primary Care Physician 1 day Patient Instructions: Chronic Hypertension (DC), General Instructions Additional Instructions: Continue current home medications. Avoid salt: No frozen food, avoid soups, no hot dogs. Follow-up with primary physician within the next 2 days. Call today to make an appointment. Med/Other Pt SpecificInfo: No Change to Meds Disposition: 01 DISCHARGE HOME Condition: Stable Shannan Fallon MD May 10, 2017 12:55
[2017-05-10 13:26] LABS: AUTOMATED NEUTROPHIL # 3.1 TH/MM3 (1.8-7.7); BASOPHIL # 0.1 TH/MM3 (0-0.2); BASOPHIL % 1.3 % (0.0-2.0); EOSINOPHIL # 0.2 TH/MM3 (0-0.4); EOSINOPHIL % 3.9 % (0.0-4.0); HEMATOCRIT 40.3 % (35.0-46.0); HEMOGLOBIN 13.4 GM/DL (11.6-15.3); LYMPH % 28.9 % (9.0-44.0); LYMPHOCYTE # 1.6 TH/MM3 (1.0-4.8); MEAN CELL VOLUME 88.7 FL (80.0-100.0); MEAN CORPUSCULAR HEMOGLOBIN 29.5 PG (27.0-34.0); MEAN CORPUSCULAR HGB CONC 33.3 % (32.0-36.0); MEAN PLATELET VOLUME 8.2 FL (7.0-11.0); MONO % 9.3 % (0.0-8.0); MONOCYTE # 0.5 TH/MM3 (0-0.9); NEUT % 56.6 % (16.0-70.0); PLATELET COUNT 187 TH/MM3 (150-450); RED BLOOD COUNT 4.54 MIL/MM3 (4.00-5.30); RED CELL DISTRIBUTION WIDTH 12.5 % (11.6-17.2); WHITE BLOOD COUNT 5.5 TH/MM3 (4.0-11.0)
[2017-05-10 13:29] LABS: CHLORIDE 103 MEQ/L (98-107); SODIUM (NA) 137 MEQ/L (136-145)
[2017-05-10 13:33] LABS: INTERNATIONAL NORMALIZED RATIO 1.1 RATIO
[2017-05-10 13:34] LABS: CALCIUM 8.8 MG/DL (8.5-10.1)
[2017-05-10 13:35] LABS: ALBUMIN 3.6 GM/DL (3.4-5.0); BICARBONATE 26.8 MEQ/L (21.0-32.0); BLOOD UREA NITROGEN 10 MG/DL (7-18); GLUCOSE,RANDOM 97 MG/DL (74-106); MAGNESIUM 2.2 MG/DL (1.5-2.5)
[2017-05-10 13:38] LABS: ALT (GPT) 24 U/L (10-53); AST (GOT) 20 U/L (15-37); CREATININE 0.64 MG/DL (0.50-1.00); GLOMERULAR FILTRATION RATE 89 ML/MIN (>89)
--- NOTE | 2017-05-10 13:38 | RADRPT ---
EXAM DATE/TIME: 05/10/2017 13:23 [facility] COMPARISON: CHEST SINGLE AP, July 15, 2016, 15:18. INDICATIONS : High blood pressure x 1 week MEDICAL HISTORY : Hypertension. Hypercholesterolemia. Carcinoma, breast. SURGICAL HISTORY : Mastectomy, right. ENCOUNTER: Initial ACUITY: 1 week PAIN SCORE: 0/10 LOCATION: Bilateral chest FINDINGS: Mild diffuse interstitial prominence unchanged from prior exam. No new focal pleural or parenchymal o pacities. The cardiomediastinal contours are unremarkable. Surgical clips in the right axilla. Osseou s structures are intact. CONCLUSION: 1. No acute cardiopulmonary disease. Yusuf Zafar MD on May 10, 2017 at 13:34 Board Certified Radiologist. This report was verified electronically.
[2017-05-10 13:39] LABS: TOTAL BILIRUBIN ADULT 0.4 MG/DL (0.2-1.0)
[2017-05-10 13:40] LABS: TOTAL PROTEIN 7.9 GM/DL (6.4-8.2)
[2017-05-10 13:41] LABS: ALKALINE PHOSPHATASE 84 U/L (45-117)
--- NOTE | 2017-05-10 13:42 | RADRPT ---
EXAM DATE/TIME: 05/10/2017 13:33 [facility] COMPARISON: CT BRAIN W/O CONTRAST, May 05, 2014, 12:20. INDICATIONS : Dizziness. RADIATION DOSE: 54.72 CTDIvol (mGy) MEDICAL HISTORY : Carcinoma, breast. Hypertension. SURGICAL HISTORY : Mastectomy, right. ENCOUNTER: Initial ACUITY: 1 day PAIN SCALE: 0/10 LOCATION: cranial TECHNIQUE: Multiple contiguous axial images were obtained of the head. Using automated exposure control and adj ustment of the mA and/or kV according to patient size, radiation dose was kept as low as reasonably a chievable to obtain optimal diagnostic quality images. DICOM format image data is available electro nically for review and comparison. FINDINGS: CEREBRUM: The ventricles are normal for age. No evidence of midline shift, mass lesion, hemorrhage or acute in farction. No extra-axial fluid collections are seen. Minimal basalganglia calcifications. POSTERIOR FOSSA: The cerebellum and brainstem are intact. The 4th ventricle is midline. The cerebellopontine angle i s unremarkable. EXTRACRANIAL: The visualized portion of the orbits is intact. SKULL: The calvaria is intact. No evidence of skull fracture. CONCLUSION: Negative for an acute process Petey Ruvalcaba MD FACR on May 10, 2017 at 13:39 Board Certified Radiologist. This report was verified electronically.
[2017-05-10 13:43] LABS: TROPONIN I LESS THAN 0.02 NG/ML (0.02-0.05)
[2017-05-10] MEDS ORDERED: hydrALAZINE HCL 20 MG/ML VIAL IV PUSH ONE (14:00)
[2017-05-10] MEDS ORDERED: POTASSIUM CHLORIDE 20 MEQ CONTROLLED RELEASE TAB PO ONE (14:00)
[2017-05-10] MEDS ORDERED: AMLO2.5T PO (14:10)
[2017-05-10] MEDS ORDERED: ATOR20TA15 PO (14:10)
[2017-05-10 14:45] VITALS: BP 145/75; RESP 16; O2SAT 97
--- NOTE | 2017-05-10 19:35 | EKG ---
Date Performed: 05/10/2017 Time Performed: 13:07:03 PTAGE: 81 years EKG: Sinus rhythm NORMAL ECG PREVIOUS TRACING : 07/15/2016 15.26 DOCTOR: Lane Sanchez Interpretating Date/Time 05/10/2017 19:34:49
== END 2017-05-10 15:36 | disposition home or self-care (01) ==
LOC: PHED 12:24
DX: I10 Essential (primary) hypertension (principal); E78.00 Pure hypercholesterolemia, unspecified; Z85.3 Personal history of malignant neoplasm of breast; Z88.8 Allergy status to other drugs, medicaments and biological substances
CPT/HCPCS: 70450; 71046; 80053; 82550; 83735; 83880; 84484; 85025; 85610; 85730; 93005; 96374; 99285; J0360

== ENCOUNTER → 2017-06-26 | Outpatient (CLI) | payer OTHER ==
[~2017-06-26] MED LIST changes: +ATOR20TA15 PO; +BIOT5TAB PO; +BIOTCAP PO; +CHOL1CAP8 PO; +HYDR-3288 PO; +HYDR25TA5 PO; -LEVA750T PO; -MECL-62 PO; -SIMV40TA PO; +VITA10002 PO
== END ==
LOC: CPRE 11:20
PROVIDERS: ATTEND Orthopaedic Surgery Sports Medicine
DX: Z01.818 Encounter for other preprocedural examination (principal); M17.11 Unilateral primary osteoarthritis, right knee

== ENCOUNTER 2017-07-10 06:30 | Inpatient (IN) | payer OTHER, MEDICARE ==
[~2017-07-10] VITALS: Ht 162.6 cm; Wt 74.8 kg
[~2017-07-10 06:30] MED LIST changes: -ASPI81CH6 CHEW; -BIOT5TAB PO; -HYDR-3288 PO; -HYDR25TA5 PO
[2017-07-10] MEDS ORDERED: CHLORHEXIDINE GLUCONATE 2 % 1 PACK (2 CLOTHS) TOPICAL PRN (07:15)
[2017-07-10] MEDS ORDERED: LACTATED RINGER'S 1000 ML IV PRN (07:15)
[2017-07-10] MEDS ORDERED: SODIUM CHLORID 0.9% 500 ML IV PRN (07:15)
[2017-07-10] MEDS ORDERED: METOPROLOL TARTRATE 25 MG TAB PO PRN (07:15)
[2017-07-10] MEDS ORDERED: VANCOMYCIN 1000 MG/NS 250 ML (for <70 kg) IV SCH ×2 (07:15)
[2017-07-10] MEDS ORDERED: DEXAMETHASONE SOD PHOS 20 MG/5 ML VIAL IV PUSH ONE (07:15)
[2017-07-10] MEDS ORDERED: POVIDONE IODINE 5% (ANTISEPSIS KIT) 4 APPLICATIONS EACH NARE PRN (07:15)
[2017-07-10] MEDS ORDERED: CHLORHEXIDINE GLUCONATE 4% SOLN 120 ML BTL TOPICAL SCH (07:15)
[2017-07-10] MEDS ORDERED: ceFAZolin 2 GM PREMIX 50 ML IV SCH (07:15)
[2017-07-10] MEDS ORDERED: POVIDONE IODINE 7.5% SCRUB 118 ML BOTTLE TOPICAL SCH (07:15)
[2017-07-10] MEDS ORDERED: DEXAMETHASONE SOD PHOS PF 10 MG/ML VIAL ONE (07:17)
[2017-07-10] MEDS ORDERED: VANCOMYCIN 1 GM/200 ML INJ 200 ML IV ONE (07:18)
[2017-07-10] MEDS ORDERED: ceFAZolin 2 GM PREMIX 50 ML ONE (07:18)
[2017-07-10] MEDS ORDERED: AMLO2.5T PO (07:19)
[2017-07-10] MEDS ORDERED: BIOT5TAB PO (07:19)
[2017-07-10] MEDS ORDERED: HYDR25TA5 PO (07:25)
[2017-07-10 07:44] VITALS: PULSE 65
[2017-07-10] MEDS ORDERED: HYDR-3288 PO (08:41)
[2017-07-10] MEDS ORDERED: ASPI81CH6 CHEW (08:42)
[2017-07-10] MEDS ORDERED: Post-op Orders (for Pharmacy) XX ONE (08:45)
[2017-07-10] MEDS ORDERED: diphenhydrAMINE HCL 50 MG/ML VIAL IV PUSH PRN (08:45)
[2017-07-10] MEDS ORDERED: ZOLPIDEM TARTRATE 5 MG TAB PO PRN (08:45)
[2017-07-10] MEDS ORDERED: MORPHINE SULFATE 4 MG/ML INJ IV PUSH PRN (08:45)
[2017-07-10] MEDS ORDERED: ONDANSETRON HCL 4 MG/2 ML VIAL IVP PRN (08:45)
[2017-07-10] MEDS ORDERED: ACETAMINOPHEN/HYDROcodone 325 MG/7.5 MG TAB PO PRN (08:45)
[2017-07-10] MEDS ORDERED: TRANEXAMIC ACID IV SCH (09:00)
[2017-07-10] MEDS ORDERED: TRANEXAMIC PERI-ARTICULAR 3,000 MG/NS 100 ML P-ARTICULR SCH ×2 (09:00)
[2017-07-10] MEDS ORDERED: ROPIVACAINE PERI-ARTICULAR INJECTION. P-ARTICULR SCH ×5 (09:00)
[2017-07-10] MEDS ORDERED: SODIUM CHLORIDE 0.9% IV SCH (09:00)
[2017-07-10] MEDS ORDERED: PILL SPLITTER OTHER PRN (09:15)
[2017-07-10] MEDS ORDERED: ACETAMINOPHEN 1000 MG/100 ML 100 ML IV ONE (09:16)
[2017-07-10] MEDS ORDERED: GENTAMICIN SULFATE 80 MG/2 ML VIAL ONE (09:27)
[2017-07-10] MEDS ORDERED: BUPIVACAINE LIPOSOME PF 1.3% 20 ML VIAL ONE (09:29)
[2017-07-10] MEDS ORDERED: MIDAZOLAM HCL 2 MG/2 ML VIAL ONE (09:29)
[2017-07-10] MEDS ORDERED: APREPITANT 40 MG CAP ONE (09:32)
[2017-07-10] MEDS ORDERED: PHENYLEPH/NS 1000 MCG/10 ML SYR IV ONE (12:00)
[2017-07-10] MEDS ORDERED: PROPOFOL 200 MG/20 ML AMP IV ONE (12:00)
[2017-07-10] MEDS ORDERED: DEXAMETHASONE SOD PHOS 4 MG/ML VIAL IV ONE (12:00)
[2017-07-10] MEDS ORDERED: ONDANSETRON HCL 4 MG/2 ML VIAL IV ONE (12:00)
[2017-07-10] MEDS ORDERED: LIDOCAINE HCL 1% PF 5 ML SYRINGE OTHER ONE (12:00)
[2017-07-10] MEDS ORDERED: *morphine SULFATE 4 MG/ML PERIprocedure ONLY ONE (12:30)
--- NOTE | 2017-07-10 12:31 | MP ---
cc: Keven Espinoza MD DATE OF OPERATION: 07/10/2017 DATE: 07/10/2017 PREOPERATIVE DIAGNOSIS: Right knee osteoarthritis. POSTOPERATIVE DIAGNOSIS: Right knee osteoarthritis. PROCEDURE PERFORMED: Right total knee arthroplasty. SURGEON: Keven Espinoza MD ANESTHESIA: General with a femoral nerve adductor canal block. ESTIMATED BLOOD LOSS: 200 mL. TOURNIQUET TIME: 23 minutes at 250 mmHg. COMPLICATIONS: None. IMPLANTS USED: DePuy Attune size 6 posterior stabilized femoral component, size 5 rotating platform tibial baseplate, size 10 mm polyethylene tibial insert, size 38 patella. INDICATIONS: The patient is an 82-year-old female with history of severe end-stage osteoarthritis involving the right knee. She has severe disabling pain with standing, walking, ambulation, weightbearing activities and severe pain at rest. She has failed greater than 3 months of nonoperative conservative treatment to include medication therapy, injections, ambulatory assistive aids, home exercise program, activity modification. The patient is not overweight. X-rays of the right knee reveal severe end-stage osteoarthrosis with [id number] joint space narrowing, subchondral sclerosis, subchondral cyst, osteophyte formation, varus deformity and subluxation. The patient was counseled as to the risks, benefits and alternatives to a total knee arthroplasty. The risks were discussed, which include, but are not limited to anesthesia, bleeding, infection, damage to nerves and blood vessels, pain, stiffness, failure of components, blood clots, swelling, pulmonary embolism, and even . The patient's pain is severe. She favored the benefits over the risks. She did wish to proceed with surgery. PROCEDURE IN DETAIL: Written consent was obtained. The patient was identified by name, taken to the operating room and placed supine on the OR table. General anesthesia was administered as well as 2 grams of IV Ancef and 1 gram of IV vancomycin. A well-padded tourniquet was placed on the right thigh, the right lower extremity prepped and draped using isopropyl alcohol, Hibiclens solution and ChloraPrep solution. After a timeout was performed, an Esmarch bandage was used to exsanguinate the right lower extremity and tourniquet inflated to 250 mmHg. A longitudinal incision was over the anterior aspect of the right knee. A medial parapatellar arthrotomy was performed. The patella was everted. The patellar resection guide was used to resect 9 mm of the patella. The size 38 mm guide was placed. Three drill holes were placed and a 38 mm trial fit well. Attention was turned to the femur. An intramedullary guide was placed and the distal femoral guide was set to remove 10 mm of distal femur, 5 degrees off the anatomic valgus axis alignment. An oscillating saw was used to perform the distal femoral cut. Attention was turned to the tibia. An extramedullary tibial guide was set to remove 5 mm off the lowest portion of the medial tibial plateau. The tibia guide was pinned in place and tibial cut was performed. A 5 mm spacer block showed full extension. Attention was turned back to the femur. The AP sizing block measured size 6. The anterior reference 3-degree external rotation guide was used to pin the size [address] Anterior, posterior and chamfer cuts were performed. A size 6 PCL box had been pinned in place, and the PCL boxed out with an oscillating saw. The medial and lateral meniscus remnants were removed as well as bone and soft tissue debris from the posterior portion of the knee. A size 5 tibial base was pinned in place and the tibia was drilled and punched. All components were evaluated and final components cemented in place. With the current components the leg could achieve full extension at 0 degrees, flexion to 140, no evidence of tibial liftoff. Varus and valgus balance were appropriate and symmetric and the patella was noted to track centrally. Tourniquet deflated. Bovie cautery was used for hemostasis. The surgical wound was thoroughly irrigated with sterile saline, pulse lavage and antibiotic impregnated solution. The arthrotomy incision was closed with #1 Vicryl suture, the subcutaneous layer with 2-0 Vicryl suture. The skin was closed with Dermabond. Sterile dressing applied. The patient tolerated the procedure well with no intraoperative complications noted. MD COLIN iRce/EVELYN , 11:51 AM , 12:30 PM
[2017-07-10] MEDS: SODIUM CHLOR 0.9% 1000 ML INJ 1,000 ML IV SCH ×2 (13:10→18:39)
--- NOTE | 2017-07-10 13:22 | RADRPT ---
EXAM DATE/TIME: 07/10/2017 13:42 [facility] COMPARISON: No previous studies available for comparison. INDICATIONS : Post op right knee replacement MEDICAL HISTORY : Hypertension. Carcinoma, breast. SURGICAL HISTORY : Mastectomy, right. ENCOUNTER: Initial ACUITY: 1 day PAIN SCORE: Non-responsive. LOCATION: Right knee FINDINGS: Two view examination of the right knee demonstrates no evidence of fracture or dislocation. Bony min eralization is normal. Small amount of air is in the joint space. The suprapatellar soft tissues conner ve a normal configuration. CONCLUSION: 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 Petey Ruvalcaba MD FACR on July 10, 2017 at 13:19 Board Certified Radiologist. This report was verified electronically.
[2017-07-10] MEDS: ceFAZolin 2 GM PREMIX 50 ML IV SCH ×2 (16:00→21:42)
[2017-07-10 16:30] VITALS: BP 134/58; PULSE 63; RESP 17; TEMP 97.3; O2SAT 98
--- NOTE | 2017-07-10 19:52 | PD.CONS ---
HPI Service [facility] Consult Requested By Primary Care Physician Armando Anthony MD Diagnoses: History of Present Illness 82-year-old female with history of hypertension, hyperlipidemia, who is currently postop day 0 elective right knee replacement due to osteoarthritis. She says she is feeling well. Denies any chest pain, shortness of breath, nausea, vomiting Review of Systems Except as stated in HPI: all other systems reviewed are Neg Past Family Social History Allergies: Coded Allergies: enalapril (Verified Allergy, Severe, Swelling, 07/10/17) enalaprilat (Verified Allergy, Severe, ANGOIEDEMA, 07/10/17) Past Medical History Hypertension Hyperlipidemia Vitamin B-12 deficiency Hypovitaminosis D Past Surgical History Lumpectomy in 1993 Reported Medications Atorvastatin 20 mg by mouth at bedtime Amlodipine 2.5 mg by mouth twice a day Aspirin 81 mg daily [place] one to 2 tabs every 6 hours as needed Hydrochlorothiazide 25 mg by mouth daily Biotin 5 mg daily Vitamin B12 1000 g daily Vitamin D 400 units by mouth daily Family History Mother with heart disease. Father with kidney disease Social History Patient with remote smoking history. Reports she smoked one pack per week for 2 years, quitting in the 1970s Nondrinker. Denies illicit drugs. Physical Exam Vital Signs Vital Signs Date Time Temp Pulse Resp B/P (MAP) Pulse Ox O2 Delivery O2 Flow Rate FiO2 07/10/17 16:30 97.3 63 17 134/58 (83) 98 07/10/17 16:30 97.5 68 20 113/55 (74) 98 Nasal Cannula 2 07/10/17 15:15 68 20 113/55 (74) 98 Nasal Cannula 2 07/10/17 14:15 64 20 122/58 (79) 98 Nasal Cannula 2 07/10/17 13:15 64 20 120/58 (78) 98 Nasal Cannula 2 07/10/17 13:00 64 20 103/51 (68) 100 Nasal Cannula 2 07/10/17 12:45 64 20 104/52 (69) 97 Nasal Cannula 2 07/10/17 12:30 64 20 134/63 (86) 100 Nasal Cannula 2 07/10/17 12:17 97.6 74 20 135/63 (87) 97 Nasal Cannula 2 07/10/17 07:44 65 07/10/17 07:44 100 Room Air 2 07/10/17 07:05 97.9 74 18 168/77 (853) 84 Physical Exam GENERAL: This is a well-nourished, well-developed patient, in no apparent distress. SKIN: No rashes, ecchymoses or lesions. Cool and dry. HEAD: Atraumatic. Normocephalic. No temporal or scalp tenderness. EYES: Pupils equal round and reactive. Extraocular motions intact. No scleral icterus. No injection or drainage. ENT: Nose without bleeding, purulent drainage or septal hematoma. Throat without erythema, tonsillar hypertrophy or exudate. Uvula midline. Airway patent. NECK: Trachea midline. No JVD or lymphadenopathy. Supple, nontender, no meningeal signs. CARDIOVASCULAR: Regular rate and rhythm without murmurs, gallops, or rubs. RESPIRATORY: Clear to auscultation. Breath sounds equal bilaterally. No wheezes , rales, or rhonchi. GASTROINTESTINAL: Abdomen soft, non-tender, nondistended. No hepato-splenomegaly , or palpable masses. No guarding. MUSCULOSKELETAL: Extremities without clubbing, cyanosis, or edema. Postoperative knee not examined. No calf tenderness. Negative Homans sign bilaterally. NEUROLOGICAL: Awake and alert. Cranial nerves II through XII intact. Motor and sensory grossly within normal limits. Five out of 5 muscle strength in all muscle groups. Normal speech. Assessment and Plan Assessment and Plan //Postoperative elective right knee replacement on 07/10 Postoperative management as per surgical service Await return of bowel function //Chronic hypertension. = Blood pressure acceptable. Continue home medications. = Would recommend restarting aspirin //Hyperlipidemia = Continue statin //Vitamin D and B12 deficiencies. Can continue medications at discharge. Discussed Condition With patient, nurse, son at bedside. Keven Costa MD Jul 10, 2017 19:52
[2017-07-10 20:18] VITALS: BP 112/56; PULSE 62; RESP 20; TEMP 97.3; O2SAT 96
[2017-07-10] MEDS: ATORVASTATIN 20 MG TAB PO SCH (21:41)
[2017-07-10] MEDS: amLODIPine BESYLATE 5 MG TAB PO SCH (21:41)
[2017-07-10 22:49] VITALS: BP 112/64; PULSE 59; RESP 18; TEMP 98.7; O2SAT 98
[2017-07-11] MEDS: ceFAZolin 2 GM PREMIX 50 ML IV SCH (04:06)
[2017-07-11 06:03] VITALS: BP 111/56; PULSE 63; RESP 16; TEMP 97.4; O2SAT 94
[2017-07-11 06:14] LABS: HEMATOCRIT 34.3 % (35.0-46.0); HEMOGLOBIN 12.1 GM/DL (11.6-15.3); MEAN CELL VOLUME 86.3 FL (80.0-100.0); MEAN CORPUSCULAR HEMOGLOBIN 30.4 PG (27.0-34.0); MEAN CORPUSCULAR HGB CONC 35.2 % (32.0-36.0); MEAN PLATELET VOLUME 8.7 FL (7.0-11.0); PLATELET COUNT 182 TH/MM3 (150-450); RED BLOOD COUNT 3.97 MIL/MM3 (4.00-5.30); WHITE BLOOD COUNT 15.8 TH/MM3 (4.0-11.0)
[2017-07-11 06:44] LABS: BICARBONATE 25.2 MEQ/L (21.0-32.0); CALCIUM 8.5 MG/DL (8.5-10.1); CREATININE 0.95 MG/DL (0.50-1.00)
[2017-07-11 08:00] VITALS: BP 119/58; PULSE 74; RESP 18; TEMP 98.1; O2SAT 98
--- NOTE | 2017-07-11 08:08 | PD.ORT.PN ---
Subjective Post Op Day #: 1 Subjective Remarks pain controlled. Objective Vitals Vital Signs Date Time Temp Pulse Resp B/P (MAP) Pulse Ox O2 Delivery O2 Flow Rate FiO2 07/11/17 06:03 97.4 63 16 111/56 (74) 94 07/10/17 22:49 98.7 59 18 112/64 (80) 98 07/10/17 20:18 97.3 62 20 112/56 (74) 96 07/10/17 16:30 97.3 63 17 134/58 (83) 98 07/10/17 16:30 97.5 68 20 113/55 (74) 98 Nasal Cannula 2 07/10/17 15:15 68 20 113/55 (74) 98 Nasal Cannula 2 07/10/17 14:15 64 20 122/58 (79) 98 Nasal Cannula 2 07/10/17 13:15 64 20 120/58 (78) 98 Nasal Cannula 2 07/10/17 13:00 64 20 103/51 (68) 100 Nasal Cannula 2 07/10/17 12:45 64 20 104/52 (69) 97 Nasal Cannula 2 07/10/17 12:30 64 20 134/63 (86) 100 Nasal Cannula 2 07/10/17 12:17 97.6 74 20 135/63 (87) 97 Nasal Cannula 2 I/O 07/10/17 07/10/17 07/10/17 07/11/17 07/11/17 07/11/17 07:00 15:00 23:00 07:00 15:00 23:00 Intake Total 750 ml 360 ml Output Total 100 ml Balance 650 ml 360 ml Intake Oral 360 ml Other 750 ml Output Estimated Blood Loss 100 ml # Voids 1 2 # Bowel Movements 0 Result Diagram: 07/11/1752207/11/17 05 Imaging Last 24 hours Impressions Knee X-Ray 07/10/17 0839 Signed Impressions: Service Date/Time: Monday, July 10, 2017 13:42 - CONCLUSION: 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 Petey Ruvalcaba MD FACR Objective Remarks in bed, nad dressing c/d/i neg homans nvi Assessment & Plan Ortho Post Op Day #: 1 Problem List: Assessment and Plan s/p R TKA wbat ok to maintain dressing unless saturated lovenox, d/c on [id number] d/c planning to snf - awaiting insurance authorization f/up dr. ortiz 2 weeks Keven Wellington Jul 11, 2017 08:07
--- NOTE | 2017-07-11 08:09 | HHI.DCPOC ---
Discharge Care Plan Diagnosis: (1) Primary localized osteoarthrosis, lower leg Your Health Problems Are: Difficulty with ADL Goals to Promote Your Health * To prevent worsening of your condition and complications * To maintain your health at the optimal level Directions to Meet Your Goals Take your medications as prescribed Follow your dietary instruction Follow activity as directed Keep your appointments as scheduled Take your immunizations and boosters as scheduled If your symptoms worsen call your PCP, if no PCP go to Urgent Care Center or Emergency Room Smoking is Dangerous to Your Health. Avoid second hand smoke Call the 24-hour hour crisis hotline for domestic abuse at Keven Wellington Jul 11, 2017 08:09
--- NOTE | 2017-07-11 08:09 | HHI.FF ---
Face to Face Verification Diagnosis: (1) Primary localized osteoarthrosis, lower leg Physical Therapy Gait training, Safety evaluation, Transfer training, bed to chair Knee: Total knee, Protocol: Right, Full weight bearing Right LE Weight Bearing: WB as tolerated Nursing RN: 3 days/week x 2 weeks Nursing: Dressing changes Dressing Changes: Daily dressing change I have seen patient Alma Delia Zamora on 07/11/17. My clinical findings support the need for the requested home health care services because: Limited ability to care for self High risk of falls I certify that my clinical findings support that this patient is homebound because: Post-op weakness Unsteady gait/balance Keven Wellington Jul 11, 2017 08:09
[2017-07-11] MEDS: amLODIPine BESYLATE 5 MG TAB PO SCH ×2 (09:17→21:01)
[2017-07-11] MEDS: HYDROCHLOROTHIAZIDE 25 MG TAB PO SCH (09:17)
[2017-07-11] MEDS: ACETAMINOPHEN/HYDROcodone 325 MG/7.5 MG TAB PO PRN (09:39)
[2017-07-11] MEDS: ENOXAPARIN SODIUM 40 MG/0.4 ML SYRINGE SQ SCH (11:15)
[2017-07-11 12:00] VITALS: BP 119/56; PULSE 70; RESP 18; TEMP 97.6; O2SAT 99
[2017-07-11] MEDS: SODIUM CHLOR 0.9% 1000 ML INJ 1,000 ML IV SCH ×2 (13:37→21:05)
[2017-07-11 16:00] VITALS: BP 103/52; PULSE 67; RESP 18; TEMP 97.5; O2SAT 99
[2017-07-11 20:00] VITALS: BP 163/75; PULSE 69; RESP 17; TEMP 98.1; O2SAT 97
[2017-07-11] MEDS: MULTIVITAMINS/MINERALS THERAPEUTIC TAB PO SCH (21:01)
[2017-07-11] MEDS: ATORVASTATIN 20 MG TAB PO SCH (21:01)
[2017-07-11] MEDS: DOCUSATE SODIUM 100 MG CAP PO SCH (21:01)
--- NOTE | 2017-07-11 23:22 | HHI.PR ---
Addendum to Inpatient Note Additional Information Patient was not in the room. Reviewed chart. Will attempt to see patient on 07/12. Patient is likely being discharged on 07/12/2017. Desiree Callaway DO Jul 11, 2017 23:22
[2017-07-12] MEDS: ACETAMINOPHEN/HYDROcodone 325 MG/7.5 MG TAB PO PRN ×2 (00:07→13:00)
[2017-07-12 03:08] VITALS: BP 119/57; PULSE 69; RESP 17; TEMP 97.7; O2SAT 95
[2017-07-12 07:43] VITALS: BP 125/60; PULSE 69; RESP 18; TEMP 98.4; O2SAT 97
--- NOTE | 2017-07-12 08:12 | PD.ORT.PN ---
Subjective Post Op Day #: 2 Subjective Remarks pain controlled. doing well. Objective Vitals Vital Signs Date Time Temp Pulse Resp B/P (MAP) Pulse Ox O2 Delivery O2 Flow Rate FiO2 07/12/17 07:43 98.4 69 18 125/60 (81) 97 07/12/17 03:08 97.7 69 17 119/57 (77) 95 07/11/17 20:00 98.1 69 17 163/75 (104) 97 07/11/17 16:00 97.5 67 18 103/52 (69) 99 07/11/17 12:00 97.6 70 18 119/56 (77) 99 I/O 07/11/17 07/11/17 07/11/17 07/12/17 07/12/17 07/12/17 07:00 15:00 23:00 07:00 15:00 23:00 Intake Total 360 ml 480 ml 360 ml Balance 360 ml 480 ml 360 ml Intake Oral 360 ml 480 ml 360 ml # Voids 2 3 2 # Bowel Movements 0 0 0 Result Diagram: 07/11/17 0523 07/11/17 0523 Imaging Last 24 hours Impressions Knee X-Ray 07/10/17 0839 Signed Impressions: Service Date/Time: Monday, July 10, 2017 13:42 - CONCLUSION: 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 Petey Ruvalcaba MD FACR Objective Remarks in bed, nad, using cpm dressing c/d/i neg homans nvi Assessment & Plan Ortho Post Op Day #: 2 Problem List: Assessment and Plan s/p R TKA wbat ok to maintain dressing unless saturated lovenox, d/c on [id number] PT d/c planning to snf - awaiting insurance authorization f/up dr. ortiz 2 weeks Keven Wellington Jul 12, 2017 08:12
[2017-07-12 08:46] LABS: HEMATOCRIT 33.6 % (35.0-46.0); HEMOGLOBIN 11.7 GM/DL (11.6-15.3); MEAN CELL VOLUME 87.2 FL (80.0-100.0); MEAN CORPUSCULAR HEMOGLOBIN 30.5 PG (27.0-34.0); MEAN CORPUSCULAR HGB CONC 34.9 % (32.0-36.0); MEAN PLATELET VOLUME 8.5 FL (7.0-11.0); PLATELET COUNT 178 TH/MM3 (150-450); RED BLOOD COUNT 3.85 MIL/MM3 (4.00-5.30); RED CELL DISTRIBUTION WIDTH 12.7 % (11.6-17.2); WHITE BLOOD COUNT 12.6 TH/MM3 (4.0-11.0)
[2017-07-12] MEDS: HYDROCHLOROTHIAZIDE 25 MG TAB PO SCH (08:51)
[2017-07-12] MEDS: amLODIPine BESYLATE 5 MG TAB PO SCH (08:51)
[2017-07-12] MEDS: MULTIVITAMINS/MINERALS THERAPEUTIC TAB PO SCH (08:51)
[2017-07-12] MEDS: DOCUSATE SODIUM 100 MG CAP PO SCH (08:51)
[2017-07-12 09:04] LABS: BICARBONATE 27.4 MEQ/L (21.0-32.0); CALCIUM 8.7 MG/DL (8.5-10.1); CREATININE 0.74 MG/DL (0.50-1.00)
[2017-07-12] MEDS: SODIUM CHLOR 0.9% 1000 ML INJ 1,000 ML IV SCH (10:39)
[2017-07-12] MEDS ORDERED: BISACODYL 10 MG SUPP RECTAL PRN (11:15)
[2017-07-12] MEDS ORDERED: MAGNESIUM HYDROXIDE SUSP 30 ML CUP PO PRN (11:15)
[2017-07-12] MEDS ORDERED: LACTULOSE SYRUP 20 GM/30 ML CUP PO PRN (11:15)
[2017-07-12 12:00] VITALS: BP 121/57; PULSE 78; RESP 18; TEMP 99; O2SAT 98
[2017-07-12] MEDS: ENOXAPARIN SODIUM 40 MG/0.4 ML SYRINGE SQ SCH (12:58)
== END 2017-07-12 17:23 | DRG 470 ==
LOC: HSDI 06:30 → EDSTATUS 10:00 → N06B 16:38
PROVIDERS: ADMIT Orthopaedic Surgery Sports Medicine; ATTEND Orthopaedic Surgery Sports Medicine
PROC: 3E0T3BZ Introduction of Anesthetic Agent into Peripheral Nerves and Plexi, Percutaneous Approach (ICD-10-PCS; 2017-07-10)
PROC: 0SRC0JA Replacement of Right Knee Joint with Synthetic Substitute, Uncemented, Open Approach (ICD-10-PCS; principal; 2017-07-10 10:01)
DX: M17.11 Unilateral primary osteoarthritis, right knee (principal); I10 Essential (primary) hypertension; E78.5 Hyperlipidemia, unspecified; E53.8 Deficiency of other specified B group vitamins; E55.9 Vitamin D deficiency, unspecified; Z87.891 Personal history of nicotine dependence
CPT/HCPCS: 73560; 80048; 85027; 86850; 86900; 86901; 94150; C1776; C9290; J0131; J0690; J0735; J1100; J1580; J1650; J1885; J2250; J2270; J2370; J2405; J2795; J3010; J3370; J7030; J7120; J8501; L1830